=== PATIENT | female | born 1980 | race Caucasian/White ===

== ENCOUNTER → 2018-04-14 20:57 | Outpatient (CLI) | payer BC, SELFPAY ==
[2018-04-14 14:56] VITALS: BMI 23.4
[2018-04-14 21:05] LABS: Absolute Lymphocyte Count 1.56 X10^3/ul (0.83-4.51); Absolute Neutrophil Count 3.4 X10^3/uL (2.0-7.7); Basophil# 0.01 X10^3/uL; Basophil% 0.2 % (0-1); Eosinophil# 0.08 X10^3/uL; Eosinophils% 1.4 % (0-5); Hematocrit 40.7 % (37-47); Hemoglobin 13.9 g/dl (12.0-15.0); Lymphocyte # 1.56 X10^3/ul (4.0); Lymphocyte % 27.1 % (19-41); Mean Corp Hgb Conc 34.2 g/gl (32-36); Mean Corpuscular Hgb 32.1 pg (27.0-32.0); Mean Platelet Vol. 10.9 fl (6.2-12.0); Monocyte# 0.67 X10^3/uL; Monocyte% 11.6 % (0-10); Neutrophil # 3.44 X10^3/uL (2.7-7.7); Neutrophil % 59.7 % (47-70); POSITIVE COUNT NO; POSITIVE DIFFERENTIAL NO; POSITIVE MORPHOLOGY NO; Platelet Count 269 K/mm3 (150-450); RBC Distribution Width CV 12.4 % (11.6-14.6); RBC Distribution Width SD 42.6 fl (35.1-43.9); Red Blood Count 4.33 M/mm3 (4.2-5.4); White Blood Count 5.8 K/mm3 (4.4-11.0)
[2018-04-14 21:08] LABS: Erythrocyte Sedimentation Rate 10 mm/hr (0-20)
[2018-04-19 11:31] LABS: HPV Reflexed? NOT INDICATED
--- OUTSIDE RECORDS SUMMARY | 2018-07-19 07:51 | XMS RPT_ITS ---
:1980 Author Organization [facility] Care Team Providers Name Role Phone Leticia Carey X RAY TECHNOLOGIST-C Attending Unavailable Primay Care Physicia, No Primary Care Unavailable Leticia Carey X RAY TECHNOLOGIST-C Referring Unavailable PROBLEMS PROBLEMS DATE TYPE CONDITION / CODE ATTENDING STATUS SOURCE 04/17/2018 Unknown Z01.419 - Encounter Adán Carey [facility] for gynecological Leticia X RAY TECHNOLOGIST-C [facility] (general) (routine) Repository without abnormal findings / Z01.419(ICD-10) PROCEDURES PROCEDURES No Procedure Records FoundRESULTS RESULTS OFFICE VISIT Observed: 04/14/2018 Status: F Source: [place] 5:10 PM [facility] REPOSITORY [facility] [address] [place] [address] OFFICE VISIT Date of Service: 04/14/18 MR#: [id number] Acct: [id number] Name: DAVID MENDOZA Rep #: [id number] : 1980 Provider: RODO Carey Age/Sex: 37/F Location: [facility] Status: Signed Intake Vital Signs04/14/18 Height 5 ft 5.25 in 04/14/18 Weight: 142 lb Intake Visit Reasons: PAP AND MED REFILLS( CHECK ADDRESS) Accompanied by: Self Is patient in pain?: No Allergies No Known Allergies Allergy (Verified 05/13/14 23:33) Medications Naproxen [Naprosyn] 250 - 500 mg PO Q8H PRN PRN #30 tab 05/15/14 [Rx] drospirenone 3 mg-ethinyl estradiol 0.03 mg tablet 1 tab PO DAILY #28 tab 04/14/18 [Rx Confirmed 04/14/18] oxybutynin chloride 5 mg tablet 5 mg PO QDAY tab 04/14/18 [History Confirmed 04/14/18] sertraline 100 mg tablet 100 mg PO DAILY #30 tab 04/14/18 [Rx Confirmed 04/14/18] PFSH Medical History OCD (obsessive compulsive disorder) (Acute) Family History Other Cancer Cervical cancer Diabetes Hypertension Myocardial infarction Social History Smoking Status: Never smoker HPI HPI (General) HPI HPI: DAVID MENDOZA, is a 37 F who presents to the office today for pap and re establish her meds for her OCD. Concerns about a lump on her upper R lateral thigh. will get a US not bigger but started about a month ago. ROS Skin Skin: Positive for other (lump on the R lat upper thigh) Breast Breast: Positive for other (lump on the R lat upper thigh) Psych Psychiatric: Positive for anxiety, Positive for other (OCD) Exam Const Constitutional: Yes cooperative, Yes healthy appearing Orientation: Yes alert, awake and oriented x3 HENMT Head: Yes normocephalic Ear: Yes hearing grossly normal bilaterally Neck Neck: normal visual inspection Thyroid: thyroid normal Eyes General: Yes appearance normal, both eyes and all related structures Chest Chest palpation AND inspection: Yes normal inspection of the chest Resp Effort AND Inspection: Yes normal respiratory effort Auscultation: Yes clear to auscultation bilaterally Cardio Palpitation: Yes normal PMI Rate: Yes regular rate Rhythm: Yes regular rhythm GI Inspection: Yes normal to inspection Auscultation: Yes normal bowel sounds General: Yes bladder normal to inspection External Female Exam: normal external appearance, normal appearance of the urethra Urethra: normal appearance of the urethra Speculum Exam - Vagina: normal appearance of the vagina Speculum Exam - Cervix: normal appearance of the cervix, closed cervix Bimanual Exam- Vagina AND Uterus: normal bimanual exam Bimanual Exam- Adnexa, other: normal adnexae, normal rectovaginal exam, pelvic support normal Recto-Vaginal: normal rectovaginal exam Pelvic Support: normal Musc Cervical Spine: Yes cervical ROM normal Thoracic/Lumbar Spine: Yes thoracic and lumbar spine normal to inspection Skin General: no rashes or lesions noted Lesions: Yes no lesions Extrem General: Yes normal to inspection Neuro General: Yes alert and oriented x3 Psych Appearance: Positive grossly normal Mood: Positive congruent mood Affect: Positive normal affect Results BMSOCCBLD Internal QC Validated? Valid Last Edit by MUMTAZ Wing on 04/14/18 15:34 POC Occult Blood Stool Negative Last Edit by MUMTAZ Wing on 04/14/18 15:34 Assessment AND Plan Problems 1. Wellness examination Z00.00 2. Encounter for gynecological examination with Papanicolaou smear of cervix Z01.419 Patient Instructions Labs will be called to you Meds ordered follow up as needed Get the US done and will call with the results Orders Orders: Medications New: Coding Level of Care Code Off vis,new,prev 18-39yrs Diagnoses Wellness examination Z00.00 Encounter for gynecological examination with Papanicolaou smear of cervix Z01.419 04/14/18 1710 <Electronically signed by Leticia PANDYA> Date Leticia BEACHC CC: CBC W/DIFF, AUTOMATED Collected: 04/14/2018 Status: F Source: [place] 3:32 PM [facility] REPOSITORY TYPE CODE TESTS RESULT OUT OF RANGE REFERENCE UNITS LAB L100.1000 4.4-11.0 K/mm3 Normal WBC 5.8 LAB L100.1200 4.2-5.4 M/mm3 Normal RBC 4.33 LAB L100.1300 12.0-15.0 g/dl Normal HGB 13.9 LAB L100.1400 37-47 % Normal HCT 40.7 LAB L100.1500 81-99 fL Normal MCV 94.0 LAB L100.1600 27.0-32.0 pg High MCH 32.1 LAB L100.1700 32-36 g/gl Normal MCHC 34.2 LAB L100.1810 11.6-14.6 % Normal RDW CV 12.4 LAB L100.1820 35.1-43.9 fl Normal RDW SD 42.6 LAB L100.1900 150-450 K/mm3 Normal PLT 269 LAB L100.2000 6.2-12.0 fl Normal MPV 10.9 LAB L100.2100 47-70 % Normal NEUT% 59.7 LAB L100.2200 19-41 % Normal LY% 27.1 LAB L100.2300 0-10 % High MONO% 11.6 LAB L100.2400 0-5 % Normal EO% 1.4 LAB L100.2500 0-1 % Normal BASO% 0.2 LAB L100.2550 0.0-0.9 % Normal IM GRAN % 0.000 Result Comment: IG% - Immature Granulocytes (promyelocytes, myelocytes and metamyelocytes) > 1% indicates that a LEFT SHIFT is Present. LAB L100.2620 2.0-7.7 X10 3/uL Normal Absolute Neut 3.4 LAB L100.2720 0.83-4.51 X10 3/ul Normal Absolute Lymph 1.56 Performed By: #### L100.0100, L101.9900 #### [facility] [address] [place], [address] ERYTHROCYTE SED RATE Collected: 04/14/2018 Status: F Source: [place] 3:32 PM [facility] REPOSITORY TYPE CODE TESTS RESULT OUT OF RANGE REFERENCE UNITS LAB L102.0000 0-20 mm/hr Normal SED RATE 10 Performed By: #### L100.0100, L101.9900 #### [facility] [address] [place], [address] PAP I-G W/RFX HRHPV Collected: 04/14/2018 Status: F Source: [place] 3:30 PM [facility] REPOSITORY Order Comment: CYTOLOGY INFORMATION: - CLINICAL INFORMATION: - DATE LMP/MENOPAUSE: 03/14/18 LMP - COLLECTION VIAL: Thin Prep Vial - CABLE SUPERVISOR SOURCE: CERVICAL/ENDOCERVICAL - COLLECTION TECHNIQUE: BRUSH/SPATULA Specimen Comment: [id number] Specimen Comment: Source.............Cervix;Endocervix Specimen Comment: LMP / Prev Treat...[id number]=[id number] Specimen Comment: No. of containers..01 ThinPrep Vial TYPE CODE TESTS RESULT OUT OF RANGE REFERENCE UNITS LAB L7400.0800 . Normal DIAGN Comment Result Comment: NEGATIVE FOR INTRAEPITHELIAL LESION AND MALIGNANCY. LAB L7400.0900 . Normal ADEQ Comment Result Comment: Satisfactory for evaluation. Endocervical and/or squamous metaplastic cells (endocervical component) are present. LAB L7400.1400 . Normal PERFORM Comment Result Comment: Mary Fernanda, Right Of Way Supervisor LAB L7400.2575 . Normal TEST METHOD Comment Result Comment: This liquid based ThinPrep(R) pap test was screened with the use of an image guided system. LAB L7400.2600 . Normal . COMM LAB L7400.2700 . Normal PAPSMR Comment Result Comment: The Pap smear is a screening test designed to aid in the detection of premalignant and malignant conditions of the uterine cervix. It is not a diagnostic procedure and should not be used as the sole means of detecting cervical cancer. Both false-positive and false-negative reports do occur. LAB L7400.2800 . Normal HPV RFLX Comment Result Comment: The HPV DNA reflex criteria were not met with this specimen result therefore, no HPV testing was performed. Performed at: [facility] [id number] Child Welfare Assistant: April Hutchins MD, Phone: [phone] Performed By: #### L7400.0350 #### [facility] (refer to report for specific site) refer to report for address and phone number ALLERGIES ALLERGIES DATE TYPE / CODE NAME / CODE REACTION SEVERITY SOURCE 05/13/2014 Drug No Known Unknown [facility] Allergy/4160 Allergies/F00 Hospital 67590(SNOMED [id number](RXNOR Repository CT) M) ENCOUNTERS ENCOUNTERS ADMIT/DISCHARGE ACCOUNT ADMITTING ENCOUNTER LOCATION SOURCE NUMBER CLASS 04/14/2018 [id number] [place] [facility] [address] [place] [address] ing:[facility] Repository PAYERS PAYERS ENCOUNTER GUARANTOR PAYER SUBSCRIBER SOURCE 04/14/2018 FLORY [place] [facility] [id number] Insurance:ANTHEMPolic STEELEDOB: [facility] [place]: [id number] Repository [address]Bpx: [phone]) Date:[id number] [phone] () [id number], [place] [address]EM: 04/14/2018 Secondary NOT GIVENUNK [place] Insurance:SELF PAY [facility] Number: Effective Repository Date:2018-04-14
== END ==
PROVIDERS: Referring Provider Nurse Practitioner; Visit Provider Nurse Practitioner
DX: Z01.419 Encounter for gynecological examination (general) (routine) without abnormal findings (principal); R22.41 Localized swelling, mass and lump, right lower limb
CPT/HCPCS: 85025; 85652; 88175; G0145

== ENCOUNTER → 2019-02-21 08:40 | Outpatient (CLI) | payer BC, SELFPAY ==
[2018-04-14 14:56] VITALS: BMI 23.4
[2019-02-21 10:23] LABS: Anion Gap 7 (5-15); BUN 12 mg/dL (7-18); BUN/Creat Ratio 15.6 RATIO (10-20); Calcium,Total 8.9 mg/dL (8.5-10.1); Chloride 106 mmol/L (98-107); Cholesterol 139 mg/dL (200); Creatinine, Serum 0.77 mg/dL (0.55-1.02); EST Glomerular Filtration Rate 89 mL/min (>60); Est Glom Filt Rate - Afr Amer 107 mL/min (>60); Glucose 86 mg/dL (74-106); High Density Lipoprotein 50 mg/dL; Potassium 3.7 mmol/L (3.5-5.1); Sodium Level 139 mmol/L (136-145); Triglycerides 136 mg/dL; Very Low Density Lipoprotein 27 mg/dL (5-40)
== END ==
PROVIDERS: Family Provider Family Medicine; PCP Family Medicine; Referring Provider Family Medicine; Visit Provider Family Medicine
DX: Z13.220 Encounter for screening for lipoid disorders (principal); Z13.1 Encounter for screening for diabetes mellitus
CPT/HCPCS: 36415; 80048; 80061

== ENCOUNTER → 2020-07-11 | Outpatient (CLI) | payer BC, SELFPAY ==
[2018-04-14 14:56] VITALS: BMI 23.4
[2020-07-15 20:44] LABS: HPV HC, High Risk Negative
== END | disposition home or self-care (01) ==
LOC: LABSPEC 10:48
PROVIDERS: PCP Family Medicine; Referring Provider Family Medicine; Visit Provider Family Medicine
DX: Z12.31 Encounter for screening mammogram for malignant neoplasm of breast (principal)
CPT/HCPCS: 87624; 88175; G0145

== ENCOUNTER 2024-07-03 10:12 | Emergency (ER) | payer BC, SELFPAY ==
[2024-07-03 10:13] VITALS: BP 120/77; PULSE 92; RESP 18; TEMP 36.6; O2SAT 100; BMI 21.5
[2024-07-03 11:13] VITALS: BP 120/65; PULSE 85; RESP 16; O2SAT 98
--- NOTE | 2024-07-03 11:49 | EKG12_ITS ---
Test Reason : PLACEMENT Blood Pressure : */* mmHG Vent. Rate : 80 BPM Atrial Rate : 80 BPM P-R Int : 150 ms QRS Dur : 72 ms QT Int : 384 ms P-R-T Axes : 35 68 53 degrees QTcB Int : 442 ms Normal sinus rhythm Normal ECG Confirmed by Fabrizio Robin ([id number]), associate entertainment editor PRAFUL NOYOLA ([id number]) on 07/05/2024 6:50:54 AM Referred By: Confirmed By: Fabrizio Robin
[2024-07-03 11:51] VITALS: BP 122/75; PULSE 85; RESP 16; O2SAT 99
[2024-07-03 11:56] LABS: Absolute Neutrophil Count 8.3 X10^3/uL (2.0-7.7); Basophil# 0.04 X10^3/uL; Basophil% 0.4 % (0-1); Eosinophil# 0.05 X10^3/uL; Eosinophils% 0.5 % (0-5); Hematocrit 42.7 % (37-47); Hemoglobin 14.7 g/dL (12.0-15.0); Lymphocyte % 16.6 % (19-41); Mean Corp Hgb Conc 34.4 g/dL (32-36); Mean Corpuscular Hgb 32.1 pg (27.0-32.0); Mean Corpuscular Volume 93.2 fL (81-99); Mean Platelet Vol. 10.6 fl (6.2-12.0); Monocyte# 0.67 X10^3/uL; Monocyte% 6.2 % (0-10); NRBC Flagged by Analyzer 0 % (0-5); Neutrophil # 8.26 X10^3/uL (2.7-7.7); Neutrophil % 75.9 % (47-70); Platelet Count 338 K/mm3 (150-450); RBC Distribution Width CV 13.2 % (11.6-14.6); RBC Distribution Width SD 45.1 fl (35.1-43.9); Red Blood Count 4.58 M/mm3 (4.2-5.4); White Blood Count 10.9 K/mm3 (4.4-11.0)
--- NOTE | 2024-07-03 11:56 | EX.ED.VIS.PS ---
HPI HPI - Psych History of Present Illness Chief Complaint: Suicidal Informant: patient Narrative Narrative: Patient feeling depressed, anxious, suicidal. She is having thoughts of killing herself so that she is not a burden to her family anymore, but she had no specific plan. She takes medicine for anxiety which has been a longstanding issue for her, but not depression. She states for the past year or so she had been shoplifting, not out of need, but more because it became an addiction for reasons that are unclear to her even her. Her just found out about is very upset with her, she found out how much trouble she could get in regarding all of this, and now feels like she is a burden to her family which is making her very depressed. She denies any recent illness or injury. [facility] Medical History OCD (obsessive compulsive disorder) Home Medications ?Medication ?Instructions ?Recorded ?Last Taken ?Type drospirenone 3 mg-ethinyl 1 tab PO DAILY #28 tabs 04/14/18 Unknown Rx estradiol 0.03 mg tablet (Ocella) escitalopram oxalate 5 mg tablet 5 mg PO DAILY 07/03/24 Unknown History hydroxyzine HCl 10 mg tablet 10 mg PO TID PRN PRN anxiety 07/03/24 Unknown History trazodone 50 mg tablet 50 mg PO QHS insomnia 07/03/24 Unknown History Allergy/AdvReac Type Severity Reaction Status Date / Time No Known Allergies Allergy Verified 07/03/24 10:16 Family History (Updated 04/14/18 @ 15:11 by Leticia Carey NP, CERAMIC CAPACITOR PROCESSOR-C) Other Cancer Cervical cancer Diabetes Hypertension Myocardial infarction Social History Smoking Status: Current some day smoker tobacco type: cigarettes ROS ROS ED Constitutional Constitutional ED: Denies chills or fever(s) Eyes Eyes: Denies change in vision or diplopia ENT ENT ED: Denies rhinorrhea or sore throat Cardiovascular Cardiovascular: Denies chest pain or palpitations Respiratory/Chest Respiratory/Chest: Denies cough or dyspnea Gastrointestinal Gastrointestinal: Denies abdominal pain, diarrhea, nausea or vomiting Genitourinary Genitourinary ED: Denies dysuria or hematuria Musculoskeletal Musculoskeletal: Denies back pain or neck pain Integumentary Denies abscess or rash Neurologic Neurologic: Denies headache(s), paresthesias or weakness Psychiatric Psychiatric: Reports depression, suicidal ideation and suicidal thoughts; Denies homicidal ideation EXAM Physical Exam Const Vital Signs: 07/03/24 10:13 07/03/24 11:13 07/03/24 11:51 Temperature 97.8 F Temperature Source Temporal Pulse Rate 92 85 85 Respiratory Rate 18 16 16 Blood Pressure 120/77 120/65 122/75 H Blood Pressure Mean 91 83 90 Pulse Ox 100 98 99 Oxygen Delivery Method Room Air Room Air Room Air Positive well nourished and well developed General Appearance ED: well developed and NAD HEENT Reports moist mucous membranes normocephalic and atraumatic Eyes PERRL and EOMs intact bilaterally General Eye ED: Negative for scleral icterus Neck no lymphadenopathy and supple Resp normal respiratory effort and clear to auscultation bilaterally Cardio no murmurs Rate: regular rate Rhythm: regular rhythm GI non-tender and non-distended Auscultation: normoactive bowel sounds Palpation: soft Back/Spine no CVA tenderness and normal ROM Extremity normal to inspection General Extremety ED: Negative for edema General Extremity: Negative for edema Neuro oriented x3, CN's II-XII intact bilaterally, no sensory deficits noted and gait normal Sensorium / Orientation: alert Motor Exam: strength 5/5 throughout Psych mental status grossly normal, thought process normal, cooperative, activity/motor behavior normal and denies homicidal ideation Mood & Affect: depressed Thought Content: suicidality Skin Lesions: no lesions Rashes: no rashes MDM MDM MDM Narrative Medical decision making narrative: Labs and EKG are normal. Patient is medically cleared for psychiatric evaluation. Social work saw and evaluated the patient here and agrees that the patient would benefit from inpatient psychiatric evaluation and treatment. Patient is amenable. Right now pink slip and she is excepted to [place]. Lab Data Attestation: I reviewed the patient's lab results. Labs: Laboratory Results - last 24 hr 07/03/24 11:42 WBC 10.9 RBC 4.58 Hgb 14.7 Hct 42.7 MCV 93.2 MCH 32.1 H MCHC 34.4 RDW Std Deviation 45.1 H RDW Coeff of Rafal 13.2 Plt Count 338 MPV 10.6 Immature Gran % (Auto) 0.400 Neut % (Auto) 75.9 H Lymph % (Auto) 16.6 L Guthrie % (Auto) 6.2 Eos % (Auto) 0.5 Baso % (Auto) 0.4 Absolute Neuts (auto) 8.3 H Absolute Lymphs (auto) 1.80 Nucleated RBC % 0 Sodium 137 Potassium 3.9 Chloride 103 Carbon Dioxide 21.3 Anion Gap 13 BUN 9 Creatinine 0.87 Estim Creat Clear Calc 76.44 Est GFR (MDRD) Non-Af 83 BUN/Creatinine Ratio 9.8 L Glucose 94 Calcium 9.8 Serum , Qual NEGATIVE Ethyl Alcohol < 10.1 Rhythm Strip Rhythm Strip: Sinus Rhythm Rate: 80 Ectopy: None EKG Initial EKG: Attestation: I personally reviewed and interpreted this EKG as follows: Interpretation: Sinus Rhythm and No Acute Injury Pattern Comments: Nml axis & intervals; nml EKG Management Discussion w/another healthcare provider: printed circuit board reworker/Case management Discharge Plan Triage Chief Complaint: Suicidal ED Provider: Mohsen Bolaños Dx/Rx/DC Orders Clinical Impression: Suicidal thoughts Prescriptions: No Action drospirenone-ethinyl estradiol [Ocella] 3-0.03 mg tablet 1 tab PO DAILY Qty: 28 12RF trazodone 50 mg tablet 50 mg PO QHS hydroxyzine HCl 10 mg tablet 10 mg PO TID PRN PRN (Reason: anxiety) escitalopram oxalate 5 mg tablet 5 mg PO DAILY Primary Care Provider: Gage Moyer Referrals: Gage Moyer MD [Primary Care Provider] - Print Language: Pashto Disposition Disposition: Psychiatric Hospital or Unit Discharge Location: [place]
[2024-07-03 12:12] LABS: Internal QC Validated? YES +Cl - CLEAR BKGD; Pregnancy, Serum, hCG Quali. NEGATIVE Negative; Record Kit Lot#, Serum Preg. 899023
[2024-07-03 12:18] LABS: Alcohol, Blood (Medical)-Serum < 10.1 mg/dL (<=10.0); Anion Gap 13 (5-15); BUN 9 mg/dL (4-19); BUN/Creat Ratio 9.8 RATIO (10-20); Calcium,Total 9.8 mg/dL (7.6-11.0); Carbon Dioxide 21.3 mmol/L (21.0-32.0); Chloride 103 mmol/L (98-108); Creatinine, Serum 0.87 mg/dL (0.70-1.20); EST Glomerular Filtration Rate 83 (>60); Estimated Creatinine Clearance 76.44 ml/min (50-250); Glucose 94 mg/dL (70-99); Potassium 3.9 mmol/L (3.3-5.1); Sodium Level 137 mmol/L (133-145)
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
--- NOTE | 2024-07-03 13:04 | CM.ED ---
Social Work SW contacted [facility] who confirmed they have a female bed open. Referral sent. Plan: Inpatient psychiatric hospitalization pending acceptance. Pam Merrill, CLINICAL PROFESSOR, THREAD GRINDER TOOL
--- NOTE | 2024-07-03 13:39 | ED.RN ---
Patient's stuffed bear given to family per request
[2024-07-03 13:41] LABS: Amphetamine Urine NEGATIVE (<1000 ng/mL); Barbiturate Urine NEGATIVE (< 200 ng/mL); Benzodiazepine Urine NEGATIVE (< 200 ng/mL); Buprenorphine Urine NEGATIVE (< 200 ng/mL); Cocaine Urine NEGATIVE (< 300 ng/mL); Fentanyl, Urine NEGATIVE; Methadone Urine NEGATIVE (< 300 ng/mL); Opiates Urine NEGATIVE (< 300 ng/mL); Oxycodone, Urine NEGATIVE (< 100 ng/mL); PCP Urine NEGATIVE (< 25 ng/mL); THC Urine NEGATIVE (< 50 ng/mL)
--- NOTE | 2024-07-03 13:45 | CM.ED ---
Social Work Patient was accepted to [facility]. Accepting is Dr. Richardson, patient will be going to [facility]. Nurse to nurse is [phone]. [facility] slip faxed, patient and patients aware of acceptance. Pam Merrill, CARDIOPULMONARY TECHNICIAN AND EEG TECH, MATHEMATICAL ENGINEER
[2024-07-03] MEDS: hydrOXYzine 10 MG Tablet PO (17:50)
[2024-07-03 17:55] VITALS: BP 125/78; PULSE 85; RESP 16; TEMP 36.8; O2SAT 99
== END 2024-07-03 17:56 ==
PROVIDERS: Emergency Provider Emergency Medicine; PCP Family Medicine; Visit Provider Emergency Medicine
DX: F41.9 Anxiety disorder, unspecified (principal); R45.851 Suicidal ideations; F42.9 Obsessive-compulsive disorder, unspecified; F17.210 Nicotine dependence, cigarettes, uncomplicated
CPT/HCPCS: 80048; 80307; 82077; 84703; 85025; 93005; 99284